=== PATIENT | male | born 1975 | race Two or more races ===

== ENCOUNTER 2017-06-28 18:47 | Emergency (ER) | payer SELFPAY ==
[~2017-06-28] VITALS: Ht 170.2 cm; Wt 104.3 kg
[2017-06-28 19:15] VITALS: BP 131/95
== END 2017-06-29 00:07 | disposition home or self-care (01) ==
LOC: ER 18:51
DX: S16.1XXA Strain of muscle, fascia and tendon at neck level, initial encounter (principal); S50.01XA Contusion of right elbow, initial encounter; R42 Dizziness and giddiness; V43.62XA Car passenger injured in collision with other type car in traffic accident, initial encounter; Y93.I9 Activity, other involving external motion; Y99.8 Other external cause status; Y92.410 Unspecified street and highway as the place of occurrence of the external cause
CPT/HCPCS: 70450; 72125